=== PATIENT | male | born 1935 | race Caucasian/White ===

== ENCOUNTER 2019-09-29 12:32 | Emergency (ER) | payer BC, OTHER ==
[~2019-09-29] VITALS: Ht 170.2 cm; Wt 79.4 kg
[~2019-09-29 12:32] MED LIST: ASPI-543 PO; ATOR40TA52 PO; CLOP75TA28 PO; COEN400C8 PO; DOXY100C2 PO; FLAX100020 PO; METO-169 PO; OMEP20CA74 PO; PRAM0.252 PO
[2019-09-29 12:43] VITALS: BP 109/82
== END 2019-09-29 13:24 | disposition home or self-care (01) ==
LOC: ER 12:32
DX: M54.2 Cervicalgia (principal); J44.9 Chronic obstructive pulmonary disease, unspecified; E78.5 Hyperlipidemia, unspecified; I25.2 Old myocardial infarction; Z88.2 Allergy status to sulfonamides
CPT/HCPCS: 93005

== ENCOUNTER 2024-04-25 06:14 | Inpatient (IN) | payer BC ==
[~2024-04-25] VITALS: Ht 170.2 cm; Wt 82.4 kg
[2024-04-25] MEDS: VANCOMYCIN HCL 1000 MG VL ONE ×2 (05:33→08:27)
[2024-04-25] MEDS: CELECOXIB 100 MG CAP ONE (05:52)
[2024-04-25] MEDS: ceFAZolin 1GM/50ML 100 ML IV ONE (06:13)
[~2024-04-25 06:14] MED LIST changes: +ALBUAER3 IN; +APIX2.5T PO; +BUPIVACAINE 0.25% INJ 50ML VIAL ONE; +CEFEPIME 1GM/ 50ML 50 ML IV ONE; -CLOP75TA28 PO; +DOXY-286 PO; -DOXY100C2 PO; +FINA5TAB4 PO; +FLAX100016 PO; -FLAX100020 PO; +ISOS1TAB28 PO; -METO-169 PO; +MORPHINE SULF PF 5 MG/10 ML VIAL ONE; +POTA-215 PO; +SPIR50TA5 PO; +SUCCINYLCHOLINE CHLORIDE 20 MG/ML 10ML VIAL IV ONE; +TRANEXAMIC ACID 20 ML ONE; +fentaNYL CITRATE 100 MCG/2 ML VL ONE
[2024-04-25] MEDS ORDERED: ePHEDrine SULFATE 50 MG/ML AMP ONE (06:37)
[2024-04-25] MEDS ORDERED: MEPERIDINE HCL (50 MG/ML) 1 ML VIAL ONE (06:45)
[2024-04-25] MEDS: PREGABALIN CAPSULE 75 MG CAP PO ONE (07:00)
[2024-04-25] MEDS: CELECOXIB 100 MG CAP PO ONE (07:00)
[2024-04-25] MEDS: ACETAMINOPHEN IV 1000 MG/100ML (10MG/ML) IV ONE (07:00)
[2024-04-25] MEDS ORDERED: fentaNYL CITRATE 100 MCG/2 ML VL ONE (07:06)
[2024-04-25] MEDS: GELATIN 1 SPONGE SIZE 100 TOP ONE (07:13)
[2024-04-25] MEDS ORDERED: NITROGLYCERIN 0.4 MG SL TAB SL PRN (07:30)
[2024-04-25] MEDS: ceFAZolin 1GM/50ML 50 ML IV SCH (07:30)
[2024-04-25] MEDS ORDERED: MORPHINE SULFATE INJ 2 MG/ml SYRG IV PRN (07:30)
[2024-04-25] MEDS ORDERED: ONDANSETRON HCL 4 MG/2 ML VIAL ONE ×2 (07:58→10:12)
[2024-04-25] MEDS ORDERED: DexAMETHasone SOD PHOS 10MG/1ML VIAL INJ ONE (07:58)
[2024-04-25] MEDS: MORPHINE SULF PF 5 MG/10 ML VIAL IV ONE (08:27)
[2024-04-25] MEDS: THROMBIN (BOVINE) 5000 UNIT SOL VIAL ONE (08:55)
[2024-04-25 09:14] VITALS: PULSE 66; RESP 8; O2SAT 92
[2024-04-25] MEDS ORDERED: MEPERIDINE HCL (25 MG/ML) 1ML VIAL IV PRN (09:30)
[2024-04-25] MEDS ORDERED: HYDROmorphone HCL 2 MG/ML VL/or syr IV PRN (09:30)
[2024-04-25] MEDS: POTASSIUM CHL 10 Meq TABLET PO SCH (10:00)
[2024-04-25] MEDS ORDERED: ALBUTEROL SULF HFA 90MCG INH 200DOSE IN SCH (10:00)
[2024-04-25] MEDS: CEFEPIME 1GM/ 50ML 50 ML IV SCH (10:00)
[2024-04-25] MEDS: SPIRONOLACTONE 25 MG TAB PO SCH (10:00)
[2024-04-25] MEDS: ONDANSETRON HCL 4 MG/2 ML VIAL IV ONE (11:00)
--- NOTE | 2024-04-25 11:03 | DVH ---
CLINICAL INDICATION: sp Right reverse TSA TECHNIQUE: XY R SHOULDER 1V XRAY Comparison: None FINDINGS/IMPRESSION: : Expected findings post right shoulder arthroplasty.
[2024-04-25 11:30] VITALS: BP 109/68; PULSE 60; RESP 20; TEMP 98.4; O2SAT 94; O2SAT 96
[2024-04-25] MEDS: HYDROcodone-ACET 5/325MG TAB PO PRN (11:42)
[2024-04-25 11:46] VITALS: BP 109/68; PULSE 60; RESP 20; TEMP 98.4; O2SAT 94
--- NOTE | 2024-04-25 13:50 | DVHPNRES ---
Progress Note Date Seen: Apr 25, 2024 Resident Creating Document: CHRISTIANO ALEX RESIDENT Objective vital signs Vital Sign Date Time Temp Pulse Resp B/P (MAP) Pulse Ox O2 Delivery O2 Flow Rate FiO2 04/25/24 11:46 98.4 60 20 109/68 (82) 94 98.4 04/25/24 09:14 Mask 9.0 Total Intake and Output 04/24/24 04/24/24 04/25/24 15:00 23:00 07:00 Intake Total 100 ml Balance 100 ml medications Current Medications Medications Dose Ordered Sig/Abena Route Start Time Stop Time Status Last Admin Dose Admin Aspirin 81 mg QPM PO 04/25/24 18:00 Finasteride 5 mg QPM PO 04/25/24 18:00 Pramipexole Dihydrochloride 0.25 mg QPM PO 04/25/24 18:00 Atorvastatin Calcium 40 mg HS PO 04/25/24 22:00 Patient Own Medication 30 mg QAM PO 04/26/24 07:00 Potassium Chloride 10 meq DAILY PO 04/25/24 10:00 Spironolactone 50 mg BID PO 04/25/24 10:00 Sodium Chloride 10 ml Q8HR IV 04/25/24 14:00 Cefazolin Sodium 50 ml @ 50 mls/hr Q8H IV 04/25/24 07:30 04/26/24 00:29 Acetaminophen/ Hydrocodone Bitart 1 tab Q4HP PRN PO 04/25/24 07:30 04/25/24 11:42 1 TAB Nitroglycerin 0.4 mg Q5MINP PRN SL 04/25/24 07:30 Morphine Sulfate 2 mg Q30M PRN IV 04/25/24 07:30 Cefepime HCl 50 ml @ 12.5 mls/hr DAILY IV 04/25/24 10:00 Labs and/or images reviewed: Labs reviewed by me, Image(s) reviewed by me Problem List/Assessment/Plan Problem List/Assessment/Plan Review of Systems: HEENT:Normal, CVS:Normal, RESPIRATORY:Normal, GI:Normal, :Normal, MSK:Normal, NEURO:Normal Examination: GENERAL:Normal, HEENT:Normal, NECK:Normal, LUNGS:Normal, CVS:Normal, ABDOMEN:Normal, MSK:Abnormal, SKIN:Normal, NEURO:Normal, :Normal Nephrology Consult/ Progress Note: Assessment: # # # # # #GFR #FeNa #Creatinine #I&O #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 #HD via javan catheter / fistula / tunneled catheter Plan: #Strict I&O and check Daily weight #Avoid Nephrotoxics #Avoid hyper/hypo tension Fluid Restriction, but it depents #Daily BMP, Serum Phosphorus, PTH Labs and Correct electrolytes but do not correct chronic (>) #Kidney Ultrasound. #Electrolytes urine K Na Protein Creatinine #Urinalysis #Hemodialysis done today, Removed #S/p HD Epogen given #Following Dr. [facility]: Next dialysis. #Dopamine fixed dose for renal. Thank you for the opportunity to follow up on your patient. In case of any question feel free to reach out to the Nephrology team. Discussed with Nephrology attending Dr. Monaco. CHRISTIANO ALEX RESIDENT Apr 25, 2024 13:50
[2024-04-25 17:00] VITALS: BP 111/69; PULSE 62; RESP 20; TEMP 98.3; O2SAT 93
[2024-04-25] MEDS: ASPirin-EC 81 mg tab PO SCH (18:00)
[2024-04-25] MEDS: FINASTERIDE 5 MG TAB PO SCH (18:19)
[2024-04-25] MEDS: PRAMIPEXOLE DIHYDROCHLORIDE MO 0.25 MG TAB PO SCH (18:20)
[2024-04-25] MEDS: SODIUM CHLOR 0.9% PF (SALINE LOCK) 10ML VIAL/SYR IV SCH (18:21)
[2024-04-25 21:00] VITALS: BP 102/59; PULSE 72; RESP 19; TEMP 97.5; O2SAT 95
[2024-04-25] MEDS: ATORVASTATIN 20 MG TAB PO SCH (21:53)
[2024-04-26 01:00] VITALS: BP 93/63; PULSE 66; RESP 17; TEMP 97.6; O2SAT 89
[2024-04-26 05:00] VITALS: BP 113/68; PULSE 63; RESP 17; TEMP 97.4; O2SAT 93
--- NOTE | 2024-04-26 05:54 | DVHOP2 ---
Operative Report - 2 Report Details Date: 04/25/24 Preop Diagnosis: Right shoulder osteoarthritis Postop Diagnosis: Right shoulder osteoarthritis Surgeon: Lowell Shrestha MD/ Hank Mclaughlin MD Sterile Processing Technologist: Sohn BENSON Anesthesiologist: Tram ROSA Anesthesia: General Implant: [employer] Shoulder SIze 38 glenosphere size 2 stem 9mm poly Consent: The patient was informed of the risks and benefits of the procedure. These include but are not limited to complications of anesthesia, postoperative infection, incomplete relief of symptoms, recurrence of symptoms, damage to blood vessels, nerves and tendons, deep venous thrombosis, pulmonary embolism and possible need for repeat surgery in the future. Estimated Blood Loss: 50 cc Name of Procedure Performed Right reverse total shoulder Procedure Details Procedure Details: The patient was taken to the operative suite, placed on the operative field. Department of Anesthesia administered general anesthetic. Once adequately lilia mackenzie, the patient was placed in the beach chair position. Care was ensured that he was well positioned, adequately secured and padded. At this point, the right upper extremity was then prepped and draped in the usual sterile fashion. A deltopectoral approach was used and taken down to the skin with a #15 blade scalpel. He had a miniopen rotator cuff repair with an incision close to the deltopectoral approach. So this skin incision was incorporated. Cephalic vein was transported medially. At this point, blunt dissection with Gong scissors was used to come to the overlying subscapular tendon and bursal tissue. Any perforating bleeders were cauterized with Bovie to obtain hemostasis. Once the bursa was seen, it was removed with a Rongeur and subscapular tendon could be easily visualized. At this point, the rotator cuff in the subacromial region was evaluated. 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 There was eburnated bone on the greater tuberosity noted. The articular surface could be visualized. The biceps tendon was intact. Biceps tenodesis was done to the pec minor. At this point, the subscapular tendon was then taken off using Bovie cautery and Metzenbaum scissors. Protection of axillary nerve was done while subscap and capsule fully releaed. It was from the capsule to have a two layered repair at closure. The capsule was also reflected posterior. At this point, the glenoid surface could be easily visualized. It was evaluated and had end stage arthritis. The humeral head was evaluated. There was noted to be gillis of the cartilage and eburnated bone particularly in the central portion of the humeral head. At this point, decision was made to proceed with the arthroplasty, since the rotator cuff tear was irreparable and there was significant gillis of the humoral head. The arm was adequately positioned. An oscillating saw was used to make the head articular cut using guide. This was done at the margin of the articular surface with the anatomic neck. This was taken down to appropriate level until this articular surface was adequately removed. At this point, the intramedullary canal and cancellous bone could be easily visualized. The opening hand reamers were then used and this was advanced to a size that had a good fit. Under direct visualization, this was performed easily. This was then removed. A trial component was then impacted into place, which did fit well and appeared adequately secured. We then turned our attention to glenoid. Batman retractor placed posteroinferi neida on glenoid. Subscap was mobilized wtih protection the axillary nerve with palpation. James was place between subscap and gelnoid. A bent ignacio was placed just above the the biceps tendon on the glenoid. Labrum was removed and capsule was released. We then placed glenoid drill guide and steinmann pin according to CT for correct version. We reamed glenoid down to bleeding cancellous bone. Glenoid irrigataed and glenoid component placed. Center lag screw with excellent bicortical purchase. 4 locking screws placed. Correct glenosphere offset determined and glenosphere impacted. Stand humeral tray and liner trialed with good IR/ER/FF and stability with only 1 mm shuck. Trial liner removed. Humerus trial removed. Correct humeral implant impacted along with tray and liner. Stability was appropriate. Subscap was not able to be repaired. Wound was irrigated. Deltopectoral interval closed with 0-vicryl followed by 2-0 and contreras for skin. Aquacel dressing placed. Condition Good Disposition Still a Patient LOWELL SHRESTHA MD Apr 26, 2024 05:54
[2024-04-26 08:00] VITALS: PULSE 65
[2024-04-26 08:44] VITALS: BP 107/64; PULSE 63; RESP 16; TEMP 36.3; O2SAT 92
[2024-04-28 11:00] LABS: Hepatitis B Surface Antigen Negative (Negative); Hepatitis C Antibody Negative (Negative)
== END 2024-04-26 10:00 | disposition home or self-care (01) | DRG 483 ==
LOC: SUR 06:14 → OVERFLOW 07:18 → TELE-WESTW 11:30
PROVIDERS: ADMIT Orthopaedic Surgery Adult Reconstructive Orthopaedic Surgery; ATTEND Orthopaedic Surgery Adult Reconstructive Orthopaedic Surgery
PROC: 0RRJ00Z Replacement of Right Shoulder Joint with Reverse Ball and Socket Synthetic Substitute, Open Approach (ICD-10-PCS; principal; 2024-04-25 07:21)
DX: M19.011 Primary osteoarthritis, right shoulder (principal); M75.101 Unspecified rotator cuff tear or rupture of right shoulder, not specified as traumatic
CPT/HCPCS: 36415; 73020; 86803; 86850; 86900; 86901; 87081; 87340; 97163; A4565; G0378; J0131; J0330; J1100; J1885; J2405; J3490